=== PATIENT | female | born 1970 | race Caucasian/White ===

== ENCOUNTER 2016-05-01 07:07 | Day surgery (SDC) | payer BC ==
[~2016-05-01 07:07] MED LIST: IV START KIT ONE; LACTATED RINGERS 1,000 ML IV SCH; LACTATED RINGERS 1,000 ML ONE; LIDOCAINE 1% 2 ML VIAL ID PRN
[2016-05-01] MEDS ORDERED: LACTATED RINGERS 1,000 ML IV SCH ×3 (07:30→11:44)
[2016-05-01] MEDS ORDERED: LIDOCAINE 1% 2 ML VIAL ID PRN (07:30)
[2016-05-01] MEDS ORDERED: MIDAZOLAM HCL 1 MG/ML 2ML VIAL ONE (09:01)
[2016-05-01] MEDS ORDERED: FENTANYL 5 ML ONE (09:02)
[2016-05-01] MEDS ORDERED: DEXAMETHASONE SOD PHOS 4 MG/1 ML VIAL ONE ×2 (10:05→10:09)
[2016-05-01] MEDS ORDERED: PROPOFOL 40 ML IV ONE (10:05)
[2016-05-01] MEDS ORDERED: LIDOCAINE 2% (MULTI DOSE) 10 ML VIAL ONE (10:05)
[2016-05-01] MEDS ORDERED: ONDANSETRON 4 MG/2ML 2 ML VIAL ONE (10:05)
[2016-05-01] MEDS ORDERED: DIPHENHYDRAMINE HCL 50 MG/1 ML VIAL ONE (10:10)
[2016-05-01] MEDS ORDERED: NALOXONE HCL 0.4 MG/ML VIAL IV PRN (10:14)
[2016-05-01] MEDS ORDERED: ONDANSETRON 4 MG/2ML 2 ML VIAL IV PRN ×2 (10:14→11:44)
[2016-05-01] MEDS ORDERED: PROMETHAZINE HCL 25 MG/ML VIAL IM PRN (10:14)
[2016-05-01] MEDS ORDERED: ATROPINE SULFATE 0.4 MG/1 ML VIAL IV PRN (10:14)
[2016-05-01] MEDS ORDERED: FENTANYL 100 MCG/2 ML VIAL IV PRN (10:14)
[2016-05-01] MEDS ORDERED: MEPERIDINE 25 MG/ML SYRINGE IV PRN (10:14)
[2016-05-01] MEDS ORDERED: KETOROLAC TROMETHAMINE 30 MG/ML 1 ML VIAL ONE (10:22)
[2016-05-01] MEDS ORDERED: KETAMINE HCL 50 MG/ML 1 ML DOSE ONE (10:39)
[2016-05-01] MEDS ORDERED: HYDROMORPHONE HCL 1 MG/ML SYRINGE ONE (11:23)
[2016-05-01] MEDS: HYDROMORPHONE HCL 1 MG/ML SYRINGE IV PRN ×2 (11:25→11:38)
[2016-05-01] MEDS ORDERED: HYDROMORPHONE HCL 1 MG/ML SYRINGE IV PRN (11:44)
[2016-05-01] MEDS ORDERED: KETOROLAC TROMETHAMINE 30 MG/ML 1 ML VIAL IV PRN (11:44)
[2016-05-01] MEDS ORDERED: OXYCODONE HCL 5 MG TABLET PO PRN (11:44)
--- NOTE | 2016-05-01 11:46 | OP ---
Christy Nelson DATE OF OPERATION: 05/01/2016 SURGEON: Conor Arellano M.D. PREOPERATIVE DIAGNOSES: 1. Menorrhagia. 2. Uterine leiomyoma. 3. Iron deficiency anemia secondary to chronic blood loss. POSTOPERATIVE DIAGNOSES: 1. Menorrhagia. 2. Uterine leiomyoma. 3. Iron deficiency anemia secondary to chronic blood loss. OPERATION: Hysteroscopy, hysteroscopic resection of a leiomyoma and NovaSure endometrial ablation. ANESTHESIA: General. FINDINGS: The uterus was upper limits of normal size, it sounded to 9 cm. There was a large posterior leiomyoma which protruded into the endometrial cavity. TECHNICAL PROCEDURE: After induction of satisfactory general anesthesia the patient was placed in the supine lithotomy position and prepped and draped in the usual fashion. A weighted speculum was placed in the vagina and the cervix grasped with a single tooth tenaculum. The endocervix was dilated using a progressively larger Junior dilator to a 27-Bulgarian. The hysteroscope was introduced and the above the findings noted. Using the resectoscope the leiomyoma was resected. Hemostasis was obtained with electrocautery. Following this, the NovaSure procedure was carried out. The NovaSure device was placed. The cavity length was 5 cm. The width was 4 cm. Power setting was 110 and the procedure carried out per standard protocol. The NovaSure device was removed and the hysteroscope was then reintroduced. It appeared that there had been very satisfactory ablation of the endometrium. Procedure was then terminated. The patient tolerated the procedure well and left the operating room awake and in good condition. There were no complications. Instrument, needle, and sponge were correct. Estimated blood loss was 50 mL. There was no blood replacement. Specimens removed were fragments of uterine leiomyoma. JOB: [id number]
[2016-05-01] MEDS ORDERED: HYDROMORPHONE HCL 0.5 MG/0.5 ML SYRINGE IV PRN (12:00)
[2016-05-01] MEDS ORDERED: OXYCODONE HCL 5 MG TABLET ONE (12:16)
--- NOTE | 2016-05-05 15:50 | SURGPATH ---
[facility] [address] [place] [id number] Patient Name: ROSIE GALLO MR#: [id number] : 1970 Gender: F Specimen #: [id number] Collected: 05/01/2016 Received: 05/04/2016 Reported: 05/05/2016 Submitting Phys: CHRISTINA TENORIO Copy To Phys[facility] Clinical History / Pre-Operative Diagnosis: MENORRHAGIA; IRON DEFICIENCY ANEMIA; UTERINE LEIOMYOMA Specimen Source / Surgical Procedure Performed: FRAGMENTS OF LEIOMYOMA Interpretation: ENDOMETRIUM AND SUPERFICIAL MYOMETRIUM, MUCOSAL RESECTION: - INACTIVE TO ATROPHIC ENDOMETRIUM - BENIGN SMOOTH MUSCLE WITH DEGENERATIVE CHANGES, CONSISTENT WITH SUBMUCOSAL LEIOMYOMA Electronically Signed Out Alana Prince M.D. Gross Description: The specimen is received in a formalin filled container labeled with the patient's name and "fragments of leiomyoma". Multiple rubbery fragments of pale montesinos soft tissue fragments are together 4.5 x 4.0 x 2.0 cm. Approximately 50% of the specimen is submitted in cassettes A-C. Benji Martinez Microscopic Description: Sections show fragments of benign smooth muscle without coagulative necrosis, increased mitoses or significant cytologic atypia. There are some degenerative changes including hyalinization and edema. Fatty metaplasia is focally seen. The endometrium ranges from weakly proliferative to atrophic. This case was reviewed at the intradepartmental pathology conference with concurrence of the interpretation by all the attendees. 1: [id number] D25.0
== END 2016-05-01 13:58 | disposition home or self-care (01) ==
LOC: SDC 07:07
PROVIDERS: ATTEND Obstetrics & Gynecology
PROC: 0U5B8ZZ Destruction of Endometrium, Via Natural or Artificial Opening Endoscopic (ICD-10-PCS; principal; 2016-05-01)
PROC: 0UB98ZZ Excision of Uterus, Via Natural or Artificial Opening Endoscopic (ICD-10-PCS; principal; 2016-05-01)
DX: D50.0 Iron deficiency anemia secondary to blood loss (chronic) (principal); N92.0 Excessive and frequent menstruation with regular cycle; D25.0 Submucous leiomyoma of uterus; J45.909 Unspecified asthma, uncomplicated
CPT/HCPCS: 58563; 58561; J1200; J1170; J3010 ×2; J1100 ×2; A9270; J1885; J2250; J2405; J7120; J2001